=== PATIENT | female | born 1975 | race Caucasian/White ===

== ENCOUNTER 2016-07-19 10:41 | Emergency (ER) ==
--- NOTE | 2016-07-19 11:09 | ED EKG INTERP ---
EKG Interpretation - EKG Time of EKG reading by physician:: 10:47 EKG Read and Signed by:: Franklin Velez EKG Interpretation (*Must complete 3 of following elements*): Normal Rate: 86 Rhythm: normal sinus rhythm with rhythm arrhythmia Comments: normal ECG Attestation - Scribe Verification/Attestation Scribe:: Pat Pat Acting as Scribe for:: Franklin Velez Scribe documention review:: This chart was documented by a scribe and accurately reflects the service the provider performed and the decisions made by the provider.
--- NOTE | 2016-07-19 11:26 | PROVIDER DOCUMENTATION ---
HPI-Cardiac General - General Chief Complaint: Palpitations Stated Complaint: PALPIATATIONS Time Seen by Provider: 07/19/16 11:11 Source: patient Allergies/Adverse Reactions: Patient Allergies Allergy/AdvReac Type Severity Reaction Status Date / Time meperidine HCl * AdvReac Severe NAUSEA Verified 04/15/14 09:21 [From Demerol] Home Medications: Hydrocodone/Acetaminophen [[place] 10-325 Tablet] 1 each PO Q4-6H PRN PRN Omeprazole [Prilosec] 40 mg PO DAILY 04/15/14 Ondansetron HCl [Zofran] 4 mg PO Q6-8H PRN PRN 04/15/14 - History of Present Illness-Cardiac Nature of Presenting Problem: Pt is 41 y/o F presents to the ED with palpitations. Pt states the palpitations started at 0545 this morning and lasted one hour. Pt states having HTN and anxiety. Pt states family member was recently diagnosed with cancer and it is stressing her out. Pt denies N/V/D. Pt denies F. Location: reports: central Quality of Pain: reports: throbbing Severity in ED: mild Onset/Duration: this morning (0545) Timing: still present, intermittent Context/Activities at Onset: reports: light activity Modifying Factors: improves with: nothing Palpitation lasted? (mins): 60 Palpitation Quality: fast/pounding heart beat History of arrythmia: reports: none Recent use of:: reports: no stimulants Nitro Today/Relief: reports: no nitro taken today Aspirin Treatment Today: reports: no aspirin today Associated Symptoms: reports: denies symptoms Similar Symptoms Previously?: Yes Recently Seen Here or By Another Healthcare Provider: No Review of Systems - Adult - REVIEW OF SYSTEMS - ADULT Constitutional: denies: chills, fever Eyes: denies: blurred vision, double vision Ears, Nose, Mouth & Throat: denies: ear pain, nose pain, throat pain Cardiovascular: reports: palpitations. denies: chest pain, heart murmur, irregular heart rate Respiratory: denies: cough, shortness of breath, wheezing Gastrointestinal: denies: abdominal pain, diarrhea, nausea, vomiting Genitourinary: denies: dysuria, hematuria Musculoskeletal: denies: bone pain, joint pain, neck pain Integumentary: denies: hives, itching Neurological: denies: dizziness/vertigo, headache/migraines Psychiatric: reports: no symptoms reported Endocrine: reports: no symptoms reported Hematologic/Lymphatic: reports: no symptoms reported Allergic/Immunologic: reports: no symptoms reported All Other Systems: Reviewed and Negative Past History - Adult - PAST MEDICAL HISTORY-ADULT Review of Records: reports: Nursing Assessment Review, Medications Reviewed, Social history reviewed & non-contributory. Major Childhood Illnesses: reports: denies history Cardiovascular: reports: HTN Respiratory: reports: denies history Gastrointestinal: reports: GERD Obstetrical/Gynecological: reports: denies history Genitourinary: reports: denies history Musculoskeletal: reports: denies history Neurological: reports: denies history Psychiatric: reports: anxiety Endocrine/Immune: reports: denies history Other Conditions: reports: denies history - PRIOR SURGERIES/PROCEDURES Surgical/Procedure History: reports: cholecystectomy, BTL - IMMUNIZATION STATUS Childhood Immunizations: See Nurse Assessment Flu Vaccine: UTD - FAMILY HISTORY Family History: reviewed, not pertinent - SOCIAL HISTORY Smoking: quit greater than 1 year, cigarettes Provider spent 3-5 mins advising pt. on dangers of tobacco.: Discussed manners to quit use, and f/u contacts for add'l counseling. Substance Use: denies Living Situation: family Physical Exam-General - PHYSICAL EXAM-ADULT Initial Vital Signs Reviewed: Yes - CONSTITUTIONAL General Appearance: appears well, alert, no apparent distress, anxious - EYES Eyes: PERRL/EOMI, pink conjunctivae - HEAD, EARS, NOSE, MOUTH & THROAT HENMT: normocephalic/atraumatic, moist mucous membranes, normal ENT inspection - NECK Neck: non-tender, full range of motion, supple, normal inspection - RESPIRATORY Respiratory: chest non-tender, lungs clear, normal breath sounds - CARDIOVASCULAR Cardiovascular: normal peripheral pulses, regular rate, rhythm, no edema - GASTROINTESTINAL (ABDOMEN) Abdominal Exam: normal bowel sounds, non tender, soft - LYMPHATIC Lymphatic: no adenopathy - MUSCULOSKELETAL Back Exam: normal inspection, no CVA tenderness, no vertebral tenderness Extremity: normal range of motion, non-tender, normal gait - SKIN Integumentary: normal color, normal turgor, warm/dry - NEUROLOGIC Neurologic: grossly normal, no motor/sensory deficits - PSYCHIATRIC Psych/Mental Status: normal mood/affect, normal thought content, normal thought process, oriented x 3 Progress - PLAN OF CARE/RESULTS Progress/Plan/Lab Results: Orders Category Date Time Status CBC WITH ELECTRONIC DIFF [HEME] Stat Lab 07/19/16 11:21 Uncollected COMPREHENSIVE METABOLIC PANEL [CHEM] Stat Lab 07/19/16 11:21 Ordered TROPONIN T Stat Lab 07/19/16 11:21 Ordered EKG [EKG] Stat Ther 07/19/16 10:58 Ordered Vital Signs - 24 hr 07/19/16 10:45 Pulse Rate 90 Respiratory 23 Rate Blood Pressure 176/109 O2 Sat by Pulse 99 Oximetry Laboratory Tests 07/19/16 07/19/16 07/19/16 11:11 11:11 11:11 WBC 7.60 RBC 4.64 Hgb 12.1 Hct 37.6 MCV 81.0 MCH 26.1 L MCHC 32.2 L RDW Std Deviation 14.5 Plt Count 205 MPV 11.4 H Immature Gran % (Auto) 0.1 Neut % (Auto) 72.0 Lymph % (Auto) 19.9 L [place] % (Auto) 5.9 Eos % (Auto) 1.8 Baso % (Auto) 0.3 Immature Gran # (Auto) 0.01 Neut # (Auto) 5.47 Lymph # (Auto) 1.51 [place] # (Auto) 0.45 Eos # (Auto) 0.14 Baso # (Auto) 0.02 Sodium 135 L Potassium 4.1 Chloride 100 Carbon Dioxide 22 L Anion Gap 13 BUN 14 Creatinine 0.8 Estimated GFR/1.73 m2 > 60 BUN/Creatinine Ratio 18 Glucose 88 Calculated Osmolality 270 Calcium 10.0 Total Bilirubin 0.40 AST 22 ALT 20 Alkaline Phosphatase 87 Troponin T < 0.010 Total Protein 6.9 Albumin 4.2 Globulin 3.0 Albumin/Globulin Ratio 2.0 Departure - Departure Time of Disposition Order: 14:24 DIAGNOSIS: Palpitations Disposition: HOME 01 Certified Medical Emergency: Emergent Condition: Stable Additional Instructions: ED Follow Up Instructions: You have been treated by a care provider in the Emergency Department. These instructions are being provided to you so you can have an understanding of how to care for yourself upon discharge. Upon discharge from the Emergency Department, you are responsible for making arrangements for follow-up care by a physician of your choice. Take all prescribed medications as directed. Return to the Emergency Department immediately for any new or worsening symptoms. You may call the Physician Referral phone number at [phone] to obtain a list of Physicians who are taking new patients. Referrals: Stewart Julien [Primary Care Provider] - Attestation - Scribe Verification/Attestation Scribe:: Pat Pat Acting as Scribe for:: Franklin Velez Scribe documention review:: This chart was documented by a scribe and accurately reflects the service the provider performed and the decisions made by the provider.
[2016-07-19 11:52] LABS: MANUAL DIFF NEEDED? NO
[2016-07-19 11:54] LABS: BASO% 0.3 % (0.0-0.8); EOS# 0.14 X1000 (0.0-0.7); EOS% 1.8 % (0.0-10.0); HEMATOCRIT 37.6 % (37.0-47.0); HEMOGLOBIN 12.1 g/dL (12.0-16.0); IMM GRAN# 0.01 X1000 (0.0-0.04); IMM GRAN% 0.1 % (0.0-0.5); LYMPH# 1.51 X1000 (1.2-3.4); LYMPH% 19.9 % (20.5-51.1); MCH 26.1 PG (27-31); MCHC 32.2 g/dL (33-37); MONO# 0.45 X1000 (0.11-0.59); MONO% 5.9 % (1.7-9.3); MPV 11.4 FL (7.4-10.4); PLT 205 X1000 (130-400); RBC 4.64 XMIL (4.2-5.4)
[2016-07-19 12:07] LABS: AGAP 13; ALBUMIN 4.2 g/dL (3.5-5.0); ALKALINE PHOSPHATASE 87 U/L (32-104); BUN 14 mg/dL (8-22); CHLORIDE 100 mmol/L (98-107); COSMO 270; GOT 22 U/L (10-30); GPT 20 U/L (10-36); POTASSIUM 4.1 mmol/L (3.5-5.1); SODIUM 135 mmol/L (136-145); TCO2 22 mmol/L (25-35); TOTAL PROTEIN 6.9 g/dL (6.3-8.3)
--- NOTE | 2016-07-19 12:24 | EKG Report ---
Test Performed on : 07/19/2016 10:47:10 AM Test Reason : CP Blood Pressure : / mmHG Vent. Rate : 086 BPM Atrial Rate : 086 BPM P-R Int : 166 ms QRS Dur : 090 ms QT Int : 350 ms P-R-T Axes : 061 031 058 degrees QTc Int : 418 ms Normal sinus rhythm. with sinus arrhythmia. Normal ECG No previous ECGs available Unconfirmed Result
[2016-07-19 13:55] VITALS: BP 118/91
== END 2016-07-19 14:33 | disposition home or self-care (01) ==
LOC: P.ED 10:41
DX: R00.2 Palpitations (principal); I10 Essential (primary) hypertension; K21.9 Gastro-esophageal reflux disease without esophagitis; Z87.891 Personal history of nicotine dependence
CPT/HCPCS: 80053; 84484; 85025; 93005; 99283